=== PATIENT | female | born 1930 | race Caucasian/White ===

== ENCOUNTER 2017-01-22 13:05 | Emergency (ER) | payer OTHER, MEDICARE ==
[2017-01-22 13:38] VITALS: BP 169/68; PULSE 78; TEMP 98.3; BMI 34.3
--- NOTE | 2017-01-22 14:46 | PDOC ---
History of Present Illness - General Chief Complaint: Injury Stated Complaint: FELL, LEFT SHOULDER, ARM, BACK PAIN Time Seen by Provider: 01/22/17 14:08 - History of Present Illness Initial Comments: 01/22/17 14:58 Chief complaint: Pain left shoulder and left rib cage History of present illness: Patient tripped over the curb last night in front of her house, fell with impact to her left shoulder and left rib cage. He arose immediately on her own. Persistent pain. Review of systems: Denies pain or injury to the head or neck. Denies loss of consciousness, nausea, vomiting, visual or focal neurologic symptoms, unsteadiness of gait. No distal numbness, pain or weakness upper extremity left. No shortness of breath fever or cough. Past medical history: CHF, COPD. Denies LA, TIA, stroke. Family/social history: Lives with her , active, cares for self, no tobacco alcohol or recreational drugs. Physical exam: Alert and oriented 3, well-developed well-nourished, no acute distress at rest, cheerful and cooperative Afebrile, vital signs normal except for mild elevation of blood pressure Head atraumatic. PERRLA, fundi benign, ENT clear Neck without tenderness or deformity, good range of motion without pain Chest clear to P&A with full breath sounds throughout bilaterally. There is tenderness over the left lateral mid chest wall, but no rib deformity or crepitus. There is a contusion and ecchymosis which is approximately 4 cm in diameter over the lateral ribs in this area. CV S1 and S2 normal, systolic ejection murmur left sternal border, no JVD or edema, no bruits Abdomen soft nontender without mass or organomegaly. Nondistended. Bowel sounds normal. No CVAT LS spine and pelvis: No deformity or tenderness, no signs of inflammation or bruising Neurological C2 to 12 intact. No focal sensory or motor deficits. Strength full and symmetric. Gait stable and unimpaired Extremities: There is a contusion and ecchymosis over the upper arm on the left , laterally. There is mild soft tissue swelling. There is no deformity. There is full range of motion of the shoulder without restriction. Pulses are full. No sensory or motor deficits as noted above. Tenderness is confined to the deltoid area. Impression: Contusions of the shoulder and ribs Plan: X-ray is normal. Rest and ice. Sling for comfort for 2-3 days, then range of motion as demonstrated to avoid stiffness. Orthopedic follow-up. Past History - Past Medical History Allergies/Adverse Reactions: Allergies Allergy/AdvReac Type Severity Reaction Status Date / Time prednisone AdvReac TREMORS Verified 01/22/17 13:19 Home Medications: Ambulatory Orders Aspirin Coated [Ecotrin -] 81 mg PO DAILY 01/22/17 Furosemide [Lasix] 20 mg PO DAILY 01/22/17 Levothyroxine [Synthroid -] 50 mcg PO DAILY 01/22/17 Lisinopril 10 mg PO DAILY 01/22/17 Loratadine [Allergy] 10 mg PO DAILY 01/22/17 Magnesium Oxide [Magnesium] 400 mg PO DAILY 01/22/17 Meloxicam [Mobic] 15 mg PO DAILY 01/22/17 Multivit-Min/Iron/Folic/Lutein [Centrum Silver Women Tablet] 1 each PO DAILY Pravastatin Sodium [Pravachol] 40 mg PO DAILY 01/22/17 HTN: Yes Hypercholesterolemia: Yes Thyroid Disease: Yes Other medical history: BRONCHITIS, ARTHRITIS - Psycho/Social/Smoking Cessation Hx Anxiety: No Suicidal Ideation: No Smoking History: Never smoked Hx Alcohol Use: No Drug/Substance Use Hx: No Substance Use Type: None *Physical Exam - Vital Signs Last Vital Signs Temp Pulse Resp BP Pulse Ox 98.3 F 78 16 169/68 96 01/22/17 13:18 01/22/17 13:18 01/22/17 13:18 01/22/17 13:18 01/22/17 13:18 ED Treatment Course - RADIOLOGY Radiology Studies Ordered: Category Date Time Status RIBS-LEFT SIDE [RAD] Stat Radiology 01/22/17 13:27 Completed SHOULDER-LEFT [RAD] Stat Radiology 01/22/17 13:27 Completed *DC/Admit/Observation/Transfer Diagnosis at time of Disposition: Contusion, shoulder /upper arm Contusion of ribs Qualifiers: Encounter type: initial encounter Laterality: left Qualified Code(s): S20.212A - Contusion of left front wall of thorax, initial encounter - Discharge Dispostion Disposition: HOME Condition at time of disposition: Stable Admit: No - Referrals Referrals: Kwabena Silva [Primary Care Provider] - 3 days - Patient Instructions Printed Discharge Instructions: How to Use a Sling, DI for Rib Contusion Additional Instructions: Wear the sling for comfort for no more than 2-3 days. As soon as the pain begins to subside, discontinue use of the sling and begin gentle range of motion exercises of the shoulder as demonstrated to avoid stiffness . Tylenol for pain. Return to ER or see your primary physician if there is no improvement or if additional symptoms develop.
== END 2017-01-22 14:52 | disposition home or self-care (01) ==
LOC: FER 13:05
DX: S40.012A Contusion of left shoulder, initial encounter (principal); S20.212A Contusion of left front wall of thorax, initial encounter; W01.0XXA Fall on same level from slipping, tripping and stumbling without subsequent striking against object, initial encounter; Y93.01 Activity, walking, marching and hiking; Y92.480 Sidewalk as the place of occurrence of the external cause; I10 Essential (primary) hypertension; I50.9 Heart failure, unspecified; E78.00 Pure hypercholesterolemia, unspecified; J44.9 Chronic obstructive pulmonary disease, unspecified; Z79.82 Long term (current) use of aspirin
CPT/HCPCS: 71101-TC; 73030-TC-LT; 99282-25